=== PATIENT | female | born 1960 | race Caucasian/White ===

== ENCOUNTER 2018-12-13 10:32 | Day surgery (SDC) | payer OTHER ==
[2018-12-13 10:47] VITALS: BMI 28.6
[2018-12-13 12:04] VITALS: TEMP 97.8
[2018-12-13 12:57] VITALS: BP 127/86; PULSE 57
== END 2018-12-13 12:55 | disposition home or self-care (01) ==
LOC: JASU-ENDO 10:32
PROVIDERS: ATTEND Internal Medicine Gastroenterology
PROC: 0DJD8ZZ Inspection of Lower Intestinal Tract, Via Natural or Artificial Opening Endoscopic (ICD-10-PCS; principal; 2018-12-13 11:15)
DX: Z12.11 Encounter for screening for malignant neoplasm of colon (principal); K64.8 Other hemorrhoids; K63.89 Other specified diseases of intestine